=== PATIENT | male | born 1950 | race Caucasian/White ===

== ENCOUNTER 2021-06-08 01:40 | Emergency (ER) | payer MEDICARE ==
[2021-06-08] MEDS ORDERED: Sodium Chloride 0.9% 10 ML Syringe FLUSH PRN (01:52)
--- NOTE | 2021-06-08 01:53 | EDM.PDOC ---
ED HPI GENERAL MEDICAL PROBLEM - General Chief Complaint: Syncope Stated Complaint: [facility] Time Seen by Provider: 06/08/21 01:50 Source of Information: Reports: Patient, EMS, RN Notes Reviewed - History of Present Illness INITIAL COMMENTS - FREE TEXT/NARRATIVE: 70 yr old male has been brought in by EMS after suffering syncopal episode at home a short time ago. He had a colonoscopy about 1 1/2 days ago, has had continued diarrhea every time he tries to eat or drink so has not been drinking much this past evening. He had been up to the bathroom. Cunningham weak, dizzy, lightheaded walking back to his chair. Passed out briefly. No chest pain or difficulty breathing. There has been no rectal bleeding. Mouth feels dry. thinks he twisted his knee. ED ROS GENERAL - Review of Systems Review Of Systems: See Below Constitutional: Denies: Fever, Chills HEENT: Reports: Other (mouth is dry) Respiratory: Denies: Shortness of Breath Cardiovascular: Denies: Chest Pain GI/Abdominal: Reports: Abdominal Pain (Pt has mild pain RLQ). Denies: Diarrhea, Nausea, Vomiting Musculoskeletal: Reports: Joint Pain (mild R knee discomfort) Skin: Reports: No Symptoms Neurological: Reports: Dizziness (now better) - Physical Exam Exam: See Below General Appearance: Alert, No Apparent Distress Ears: Normal External Exam Throat/Mouth: Other (mouth is dry) Head Exam: Atraumatic Neck: Supple Respiratory/Chest: No Respiratory Distress, Lungs Clear, Normal Breath Sounds Cardiovascular: Regular Rate, Rhythm GI/Abdominal: Soft, Other (Surgical scar RLQ, minimal tenderness RLQ). No: Guarding, Rebound Neuro Exam (Abbreviated): Alert, Oriented, No Motor/Sensory Deficits Extremities: Normal Inspection, Other (R knee is nontender, good ROM without difficulty). No: Leg Pain Skin Exam: Warm, Dry, Normal Color #1 Interpretation EKG Date: 06/08/21 Rhythm: NSR P-Wave: Present QRS: Other (small q waves lead III) ST-T: Normal QT: Normal Course - Vital Signs Last Recorded V/S: Last Vital Signs Temp 96.7 F L 06/08/21 01:49 Pulse 85 06/08/21 01:49 Resp 16 06/08/21 01:49 BP 125/71 06/08/21 01:49 Pulse Ox 95 06/08/21 01:49 - Orders/Labs/Meds Orders: Active Orders 24 hr Category Date Time Status Peripheral IV Care [RC] . DIRECTED Care 06/08/21 01:52 Active Abdomen 2V AP Flat Upright [CR] Stat Exams 06/08/21 03:32 Taken Sodium Chloride 0.9% [Normal Saline] 1,000 ml Med 06/08/21 02:00 Active IV ONETIME Sodium Chloride 0.9% [Saline Flush] Med 06/08/21 01:52 Active 10 ml FLUSH ASDIRECTED PRN Peripheral IV Insertion Adult [OM.PC] Stat Oth 06/08/21 01:52 Ordered Medication Orders Sodium Chloride (Normal Saline) 1,000 mls @ 999 mls/hr IV ONETIME SHAVON Last Admin: 06/08/21 02:15 Dose: 999 mls/hr Documented by: TATIANNA Sodium Chloride (Sodium Chloride 0.9% 10 Ml Syringe) 10 ml FLUSH ASDIRECTED PRN PRN Reason: Keep Vein Open Last Admin: 06/08/21 02:15 Dose: 10 ml Documented by: TATIANNA Labs: Laboratory Tests 06/08/21 06/08/21 Range/Units 02:50 02:50 WBC 11.08 H (4.23-9.07) K/mm3 RBC 5.15 (4.63-6.08) M/mm3 Hgb 15.9 (13.7-17.5) gm/dl Hct 46.4 (40.1-51.0) % MCV 90.1 (79.0-92.2) fl MCH 30.9 (25.7-32.2) pg MCHC 34.3 (32.2-35.5) g/dl RDW Std Deviation 42.0 (35.1-43.9) fL Plt Count 148 L (163-337) K/mm3 MPV 10.8 (9.4-12.3) fl Neut % (Auto) 77.5 H (34.0-67.9) % Lymph % (Auto) 9.7 L (21.8-53.1) % Mcintosh % (Auto) 12.4 H (5.3-12.2) % Eos % (Auto) 0.1 L (0.8-7.0) Baso % (Auto) 0.2 (0.1-1.2) % Neut # (Auto) 8.59 H (1.78-5.38) K/mm3 Lymph # (Auto) 1.08 L (1.32-3.57) K/mm3 Mcintosh # (Auto) 1.37 H (0.30-0.82) K/mm3 Eos # (Auto) 0.01 L (0.04-0.54) K/mm3 Baso # (Auto) 0.02 (0.01-0.08) K/mm3 Sodium 141 (136-145) mEq/L Potassium 3.7 (3.5-5.1) mEq/L Chloride 106 (98-107) mEq/L Carbon Dioxide 23 (21-32) mEq/L Anion Gap 15.7 H (5-15) BUN 10 (7-18) mg/dL Creatinine 0.9 (0.7-1.3) mg/dL Est Cr Clr Drug Dosing TNP Estimated GFR (MDRD) > 60 (>60) mL/min BUN/Creatinine Ratio 11.1 L (14-18) Glucose 132 H (70-99) mg/dL Calcium 8.7 (8.5-10.1) mg/dL Total Bilirubin 0.9 (0.2-1.0) mg/dL AST 23 (15-37) U/L ALT 47 (16-63) U/L Alkaline Phosphatase 32 L (46-116) U/L Total Protein 6.6 (6.4-8.2) g/dl Albumin 3.5 (3.4-5.0) g/dl Globulin 3.1 gm/dL Albumin/Globulin Ratio 1.1 (1-2) Meds: Medications Generic Name Dose Route Start Last Admin Trade Name Freq PRN Reason Stop Dose Admin Sodium Chloride 1,000 mls @ 999 mls/hr 06/08/21 02:00 06/08/21 02:15 Normal Saline IV 999 mls/hr ONETIME SHAVON Administration Sodium Chloride 10 ml 06/08/21 01:52 06/08/21 02:15 Sodium Chloride 0.9% 10 Ml Syringe FLUSH 10 ml ASDIRECTED PRN Administration Keep Vein Open - Re-Assessments/Exams Free Text/Narrative Re-Assessment/Exam: 06/08/21 04:24 flat and upright abd shows scattered gas, no free air or air fluid levels. Departure - Departure Time of Disposition: 04:25 Disposition: Home, Self-Care 01 Condition: Fair Clinical Impression: Syncope Qualifiers: Syncope type: unspecified Qualified Code(s): R55 - Syncope and collapse Diarrhea Qualifiers: Diarrhea type: unspecified type Qualified Code(s): R19.7 - Diarrhea, unspecified - Discharge Information Referrals: Bryan Barber MD [Primary Care Provider] - Forms: ED Department Discharge Additional Instructions: Rest, clear liquids only until this evening, than careful bland diet as tolerated. Probiotic twice daily for 1 week. Follow up clinic as needed. Return to ED as needed if symptoms worsening in any way. Sepsis Event Note (ED) - Focused Exam Vital Signs: Vital Signs Temp Pulse Resp BP Pulse Ox 06/08/21 01:49 96.7 F L 85 16 125/71 95 - My Orders Last 24 Hours: My Active Orders 06/08/21 01:52 Peripheral IV Care [RC] . DIRECTED Sodium Chloride 0.9% [Saline Flush] 10 ml FLUSH ASDIRECTED PRN Peripheral IV Insertion Adult [OM.PC] Stat 06/08/21 02:00 Sodium Chloride 0.9% [Normal Saline] 1,000 ml IV ONETIME 06/08/21 03:32 Abdomen 2V AP Flat Upright [CR] Stat - Assessment/Plan Last 24 Hours: My Active Orders 06/08/21 01:52 Peripheral IV Care [RC] . DIRECTED Sodium Chloride 0.9% [Saline Flush] 10 ml FLUSH ASDIRECTED PRN Peripheral IV Insertion Adult [OM.PC] Stat 06/08/21 02:00 Sodium Chloride 0.9% [Normal Saline] 1,000 ml IV ONETIME 06/08/21 03:32 Abdomen 2V AP Flat Upright [CR] Stat
[2021-06-08] MEDS ORDERED: Sodium Chloride 0.9% 1,000 ML IV SCH (02:00)
--- NOTE | 2021-06-08 07:02 | CR ---
Abdomen: Supine and upright views of the abdomen were obtained. Comparison: Prior CT abdomen study of 10/23/16. Scattered gas is noted within the colon as well as gas within nondilated small bowel loops. This bowel gas pattern appears within normal limits. Mild scattered degenerative change is seen within the spine. Calcifications are seen within the pelvis which are most likely due to phleboliths. No free air is seen. Impression: 1. Findings believed to be incidental as described above. 2. Nothing acute is seen. Diagnostic code #2
== END 2021-06-08 04:42 | disposition home or self-care (01) ==
LOC: JD.ED 01:40
DX: R55 Syncope and collapse (principal); R19.7 Diarrhea, unspecified
CPT/HCPCS: 36415; 74019; 80053; 85025; 93005; 99285; J7030; 99284